=== PATIENT | male | born 1935 | race Caucasian/White ===

== ENCOUNTER 2022-01-31 20:13 | Observation (INO) ==
[2022-01-31] MEDS ORDERED: Carbidopa/Levodopa ER 25/100 TABLET.ER PO ONE (23:57)
[2022-02-01 01:49] LABS: ABS Eosinophils 0.1 10^3/ul (0-0.6); ABS Lymphocytes 1.8 10^3/ul (1.0-4.8); ABS Monocytes 0.9 10^3/ul (0-0.8); Eosinophil % 1.4 %; Hematocrit 32 % (42-52); Hemoglobin 10.5 g/dL (14.0-18.0); Lymphocyte % 23.1 %; Mean Corpuscular HGB Conc 33 g/dL (31-36); Mean Corpuscular Hemoglobin 29 pg (27-31); Mean Corpuscular Volume 89 fL (80-94); Mean Platelet Volume 8.6 fL (7.4-10.4); Platelet Count 216 10^3/uL (150-450); Red Blood Count 3.57 10^6 /uL (4.18-5.48); Red Cell Distribution Width 13 % (10-15); White Blood Count 7.8 10^3/uL (3.5-10.8)
[2022-02-01 03:12] LABS: Albumin 3.7 g/dL (3.2-5.2)
[2022-02-01 03:18] LABS: Albumin/Globulin Ratio 1.5 (1-3); Globulin 2.4 g/dL (2-4); Total Protein 6.1 g/dL (6.4-8.9)
[2022-02-01 03:22] LABS: Urine Appearance Clear; Urine Bilirubin Negative (Negative); Urine Blood Negative (Negative); Urine Color Yellow; Urine Glucose Negative (Negative); Urine Ketones Negative (Negative); Urine Nitrite Negative (Negative); Urine Protein Negative (Negative); Urine Specific Gravity 1.015 (1.002-1.030); Urine Urobilinogen Negative (Negative)
[2022-02-01 03:30] LABS: Urine Bacteria Absent (Absent); Urine Red Blood Cell 1+(3-5/hpf) (Absent); Urine Squamous Epithelial Cell Present (Absent); Urine White Blood Cell 1+(6-10/hpf) (Absent)
[2022-02-01 03:37] LABS: Calcium 8.9 mg/dL (8.6-10.3); Potassium 4.5 mmol/L (3.5-5.0); Total Bilirubin 0.4 mg/dL (0.2-1.0)
[2022-02-01] MEDS ORDERED: Enoxaparin 40 MG/0.4 ML SYR SUBCUT SCH (08:00)
[2022-02-01] MEDS ORDERED: Carbidopa/Levodop 25/100 MG TAB PO SCH (09:00)
[2022-02-01 15:31] VITALS: BP 135/88
== END 2022-02-01 15:29 | disposition home or self-care (01) ==
LOC: EDHOLD 20:13 → ED 20:13
PROVIDERS: ADMIT Student in an Organized Health Care Education/Training Program; ATTEND Student in an Organized Health Care Education/Training Program

== ENCOUNTER 2024-01-07 13:15 | Inpatient (IN) ==
[2024-01-07] MEDS: Iodixanol (CONTRAST) 320 MG/ML 100 ML SDV IV ONE (15:23)
[2024-01-07 15:28] LABS: ABS Eosinophils 0.2 10^3/uL (0.0-0.5); ABS Lymphocytes 1.9 10^3/uL (1.0-4.8); ABS Monocytes 0.6 10^3/uL (0.0-1.1); ABS Nucleated RBC 0.01 10^3/ul; Hematocrit 35.2 % (38-53); Hemoglobin 11.6 g/dL (13.2-16.3); Mean Corpuscular Hemoglobin 29.7 pg (27-33); Mean Corpuscular Volume 89.8 fL (80-97); Mean Platelet Volume 8.8 fL (7.5-11.2); Nucleated Red Blood Cells % 0.1 %/100WBC (0.0-0.8); Platelet Count 215 10^3/uL (150-450); Red Blood Count 3.91 10^6/uL (4.06-5.63); Red Cell Distribution Width 13.5 % (12-17); White Blood Count 5.8 10^3/uL (3.6-10.2)
[2024-01-07 15:45] LABS: Activated Partial Thrombo Time 34.5 seconds (26.0-38.0); INR 1.12 (0.85-1.14)
[2024-01-07 15:52] LABS: High Sens Troponin Baseline 4 pg/mL (<20)
[2024-01-07 16:43] LABS: ALT 10 U/L (7-52); AST 18 U/L (13-39); Albumin 3.8 g/dL (3.2-5.2); Albumin/Globulin Ratio 1.7 (1-3); Alkaline Phosphatase 91 U/L (35-149); Anion Gap 5 mmol/L (2-16); Blood Urea Nitrogen 24 mg/dL (6-24); CO2 Carbon Dioxide 28 mmol/L (22-32); Calcium 8.9 mg/dL (8.6-10.3); Chloride 105 mmol/L (101-111); Cholesterol 130 mg/dL; Creatinine, Serum 0.71 mg/dL (0.67-1.17); Direct Bilirubin 0.1 mg/dL (0.03-0.18); Globulin 2.3 g/dL (2-4); Glucose 99 mg/dL (70-100); HDL Cholesterol 69.2 mg/dL; Indirect Bilirubin 0.4 mg/dL (0.3-1.0); LDL Cholesterol 50 mg/dL; Potassium 4.5 mmol/L (3.5-5.0); Sodium 138 mmol/L (135-145); Total Bilirubin 0.5 mg/dL (0.2-1.0); Total Protein 6.1 g/dL (6.4-8.9); Triglycerides 56 mg/dL; eGFR CKD-EPI 88.2 (>60)
[2024-01-07 16:58] LABS: Urine Appearance Turbid; Urine Bilirubin Negative (Negative); Urine Blood 3+ (Negative); Urine Color Colorless; Urine Glucose Negative (Negative); Urine Ketones Negative (Negative); Urine Nitrite Negative (Negative); Urine Protein Trace (Negative); Urine Specific Gravity 1.026 (1.002-1.030); Urine Urobilinogen Negative (Negative); Urine pH 6.5 (5.0-8.0)
[2024-01-07 17:11] LABS: Urine Bacteria Absent /HPF (Absent); Urine Red Blood Cell 3+(>10/hpf) /HPF (0-Trace); Urine Squamous Epithelial Cell Present /HPF (Absent); Urine White Blood Cell 3+(>20/hpf) /HPF (0-Trace)
[2024-01-07 17:12] LABS: High Sensitivity Troponin 1 Hr 4 pg/mL (<20)
[2024-01-07] MEDS: cefTRIAXone 1 gm/50 mL D5W 1 GM/50 ML BAG IV ONE (17:33)
[2024-01-07 21:04] LABS: % Iron Saturation 23 % (15-55); .Transferrin 213 mg/dL (203-362); Iron 70 ug/dL (50-212); Total Iron Binding Capacity 298 mcg/dL (250-450); Unsaturated Iron Binding 228 ug/dL
[2024-01-07] MEDS: Carbidopa/Levodop 25/100 MG TAB PO SCH (21:23)
[2024-01-07 21:26] LABS: Ferritin 46.8 ng/mL (24-336)
[2024-01-07 21:30] LABS: Folate > 20.00 ng/mL (5.90-24.80)
[2024-01-07 21:31] LABS: Vitamin B12 368 pg/mL (180-914)
[2024-01-08 06:01] LABS: Hematocrit 30.3 % (38-53); Hemoglobin 10.4 g/dL (13.2-16.3); Mean Corpuscular Hemoglobin 30.6 pg (27-33); Mean Corpuscular Hgb Conc 34.3 g/dL (31-36); Mean Corpuscular Volume 89.4 fL (80-97); Mean Platelet Volume 8.9 fL (7.5-11.2); Platelet Count 195 10^3/uL (150-450); Red Blood Count 3.39 10^6/uL (4.06-5.63); Red Cell Distribution Width 13.2 % (12-17); White Blood Count 7.1 10^3/uL (3.6-10.2)
[2024-01-08] MEDS ORDERED: Sulfur Hexaflouride MICROSPHR 25 MG VIAL ONE (09:04)
[2024-01-08] MEDS: Carbidopa/Levodop 25/100 MG TAB PO SCH (13:35)
[2024-01-08] MEDS: Ziprasidone IM 20 mg VIAL 1 ml VIAL IM PRN (20:23)
[2024-01-08] MEDS: Ziprasidone IM 20 mg VIAL 1 ml VIAL IM ONE (23:39)
[2024-01-09 14:35] LABS: ABS Eosinophils 0.1 10^3/uL (0.0-0.5); ABS Lymphocytes 1.7 10^3/uL (1.0-4.8); ABS Monocytes 0.6 10^3/uL (0.0-1.1); ABS Neutrophils 3.5 10^3/uL (1.5-7.6); Eosinophil % 2.4 %; Hematocrit 32.9 % (38-53); Hemoglobin 11.2 g/dL (13.2-16.3); Lymphocyte % 28.1 %; Mean Corpuscular Hemoglobin 30.5 pg (27-33); Mean Corpuscular Hgb Conc 34.1 g/dL (31-36); Mean Corpuscular Volume 89.6 fL (80-97); Mean Platelet Volume 9.1 fL (7.5-11.2); Platelet Count 206 10^3/uL (150-450); Red Blood Count 3.67 10^6/uL (4.06-5.63); Red Cell Distribution Width 13.4 % (12-17); White Blood Count 5.9 10^3/uL (3.6-10.2)
[2024-01-09 15:08] LABS: Calcium 8.7 mg/dL (8.6-10.3); Creatinine, Serum 0.74 mg/dL (0.67-1.17); Potassium 3.9 mmol/L (3.5-5.0); eGFR CKD-EPI 87.2 (>60)
[2024-01-09] MEDS: cefTRIAXone 1 gm/50 mL D5W 1 GM/50 ML BAG IV ONE (17:10)
[2024-01-09] MEDS: Haloperidol 5 mg/ml SDV IV/IM 5 MG/ML AMP IV SLOW PU ONE (17:11)
[2024-01-09] MEDS: cefTRIAXone 1 gm/50 mL D5W 1 GM/50 ML BAG IV SCH (18:09)
[2024-01-09] MEDS: Lactated Ringers 1000 ml BAG 1,000 ML IV SCH (22:21)
[2024-01-10 06:09] LABS: ABS Eosinophils 0.3 10^3/uL (0.0-0.5); ABS Monocytes 0.6 10^3/uL (0.0-1.1); ABS Neutrophils 2.7 10^3/uL (1.5-7.6); Eosinophil % 4.6 %; Hematocrit 30.3 % (38-53); Lymphocyte % 36.1 %; Mean Corpuscular Hemoglobin 29.8 pg (27-33); Mean Corpuscular Volume 90.3 fL (80-97); Mean Platelet Volume 9.1 fL (7.5-11.2); Nucleated Red Blood Cells % 0.1 %/100WBC (0.0-0.8); Platelet Count 190 10^3/uL (150-450); Red Blood Count 3.36 10^6/uL (4.06-5.63); Red Cell Distribution Width 13.5 % (12-17); White Blood Count 5.5 10^3/uL (3.6-10.2)
[2024-01-10 06:26] LABS: Calcium 8.1 mg/dL (8.6-10.3); Creatinine, Serum 0.68 mg/dL (0.67-1.17); Magnesium 1.9 mg/dL (1.9-2.7); Potassium 3.9 mmol/L (3.5-5.0); eGFR CKD-EPI 89.4 (>60)
[2024-01-10 09:50] VITALS: BP 113/54
== END 2024-01-10 13:50 | DRG 69 ==
LOC: ED 13:15 → EDHOLD 13:15 → SUATTDRO 18:18 → OBSVTOIN 18:18 → MEDTELE 20:13
PROVIDERS: ADMIT Internal Medicine; ATTEND Internal Medicine